=== PATIENT | male | born 1945 | race Caucasian/White ===

== ENCOUNTER 2019-06-24 15:18 | Outpatient (CLI) | payer MEDICARE, SELFPAY ==
--- NOTE | ~2019-06-24 | US_ITS ---
EXAMINATION: US retroperitoneal comp DATE: 06/24/2019 16:13 INDICATION: Renal mass seen on CT TECHNIQUE: Multiple ultrasound grayscale images of the kidneys were obtained. COMPARISON: CT dated 06/13/2019 FINDINGS: The right kidney measures 13.1 x 6.8 x 7.1 cm. The left kidney measures 13.4 x 5.8 x 5.2 cm. The kidn eys demonstrate normal echogenicity. Bilateral anechoic renal cysts the largest measuring 8.2 cm at t he posterior mid right kidney. There is a smaller 3.9 cm anechoic cyst at the inferior left kidney wh ich corresponds to the intermediate attenuation lesion on prior CT consistent with a proteinaceous/he morrhagic cyst. There is an additional smaller 1.6 cm anechoic left renal cyst. There is no hydroneph rosis in either kidney. No stones identified. The bladder is normal. IMPRESSION: 1. Bilateral anechoic renal cysts which includes a 3.9 cm likely proteinaceous/hemorrhagic cyst at t he lower pole of the left kidney corresponding to the lesion of concern on prior CT. Reviewed, dictated and finalized at location A. 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 Bilateral anechoic renal cysts which includes a 3.9 cm likely proteinaceous /hemorrhagic cyst at the lower pole of the left kidney corresponding to the les ion of concern on prior CT.
== END 2019-06-24 15:19 | disposition home or self-care (01) ==
LOC: ANHIMG 15:20
PROVIDERS: Visit Provider Internal Medicine
DX: N28.1 Cyst of kidney, acquired (principal)
CPT/HCPCS: 76770

== ENCOUNTER 2020-07-02 10:17 | Outpatient (CLI) | payer MEDICARE, SELFPAY ==
--- NOTE | 2020-07-02 12:00 | NEURO_ITS ---
Impression: # Complains of nocturnal paresthesia of hands. # Bilateral Carpal Tunnel Syndrome, right more than left. # Left ulnar neuropathy across the elbow. # Abnormal needle/EMG exam Nerve Conduction Studies Anti Sensory Summary Table Stim Site NR Peak (ms) P-T Amp (?V) Site1 Site2 Delta-P (ms) Dist (cm) Shia (m/s) Left Median Anti Sensory (2-3nd Digit) Wrist 5.4 19.1 Wrist 2-3nd Digit 5.4 14.0 26 Wrist 6.3 14.6 Wrist 2-3nd Digit 5.4 14.0 26 Right Median Anti Sensory (2-3nd Digit) Wrist 6.1 19.7 Wrist 2-3nd Digit 6.1 14.0 23 Wrist 6.7 18.7 Wrist 2-3nd Digit 6.1 14.0 23 Left Radial Anti Sensory (Base 1st Digit) Wrist 2.5 9.8 Wrist Base 1st Digit 2.5 0.0 Right Radial Anti Sensory (Base 1st Digit) Wrist 2.2 9.9 Wrist Base 1st Digit 2.2 0.0 Left Ulnar Anti Sensory (5th Digit) Wrist 2.9 21.3 Wrist 5th Digit 2.9 14.0 48 Right Ulnar Anti Sensory (5th Digit) Wrist 3.3 32.8 Wrist 5th Digit 3.3 14.0 42 Motor Summary Table Stim Site NR Onset (ms) O-P Amp (mV) Site1 Site2 Delta-0 (ms) Dist (cm) Shai (m/s) Left Median Motor (Abd Poll Brev) Wrist 5.5 0.8 Elbow Wrist 5.5 32.0 58 Elbow 11.0 1.7 Right Median Motor (Abd Poll Brev) Wrist 6.3 0.8 Elbow Wrist 5.6 30.0 54 Elbow 11.9 1.5 Left Ulnar Motor (Abd Dig Minimi) Wrist 3.4 3.3 A Elbow Wrist 6.5 31.0 48 A Elbow 9.9 2.4 B Elbow Wrist 5.0 26.0 52 B Elbow 8.4 2.7 Right Ulnar Motor (Abd Dig Minimi) Wrist 3.4 3.6 A Elbow Wrist 5.9 33.0 56 A Elbow 9.3 2.5 F Wave Studies NR F-Lat (ms) L-R F-Lat (ms) Left Median (Mrkrs) (Abd Poll Brev) 31.11 1.17 Right Median (Mrkrs) (Abd Poll Brev) 32.28 1.17 Left Ulnar (Mrkrs) (Abd Dig Min) 31.29 1.05 Right Ulnar (Mrkrs) (Abd Dig Min) 32.34 1.05 EMG Side Muscle Nerve Root Ins Act Fibs Amp Dur Recrt Comment Right 1stDorInt Ulnar C8-T1 Nml Nml Nml Nml Nml Right Ext Indicis Radial (Post Int) C7-8 Nml Nml Nml Nml Nml Right Ext Digitorum Radial (Post Int) C7-8 Nml Nml Nml Nml Nml Right BrachioRad Radial C5-6 Nml Nml Nml Nml Nml Right PronatorTeres Median C6-7 Nml Nml Nml Nml Nml Right Abd Poll Brev Median C8-T1 Nml Nml Nml >12ms Reduced Left 1stDorInt Ulnar C8-T1 Nml Nml Nml >12ms Reduced Left Ext Indicis Radial (Post Int) C7-8 Nml Nml Nml Nml Nml Left Ext Digitorum Radial (Post Int) C7-8 Nml Nml Nml Nml Nml Left BrachioRad Radial C5-6 Nml Nml Nml Nml Nml Left PronatorTeres Median C6-7 Nml Nml Nml Nml Nml Left Abd Poll Brev Median C8-T1 Nml Nml Nml >12ms Reduced MTDD
== END 2020-07-02 10:18 | disposition home or self-care (01) ==
PROVIDERS: PCP Internal Medicine; Visit Provider Orthopaedic Surgery
DX: G56.03 Carpal tunnel syndrome, bilateral upper limbs (principal)
CPT/HCPCS: 95886; 95911

== ENCOUNTER 2020-07-16 09:27 | Outpatient (CLI) | payer MEDICARE, SELFPAY ==
--- NOTE | 2020-07-16 09:30 | ECG_ITS ---
Measurements Intervals [place] Rate: 72 P: 223 HI: 206 QRS: 57 QRSD: 173 T: 43 QT: 436 QTc: 480 Interpretive Statements ELECTRONIC ATRIAL PACEMAKER ELECTRONIC VENTRICULAR PACEMAKER VENTRICULAR PREMATURE COMPLEXES BASELINE ARTIFACT- I, II, AVR, AVL, AVF NO FURTHER INTERPRETATION IS POSSIBLE BORDERLINE ECG Electronically Signed On 07-16-2020 10:22:09 INTEGRATION CONSULTANT by Rodrigue Bess D.O.
[2020-07-16 10:19] LABS: Anion Gap 7 mmol/L (8-16); Blood Urea Nitrogen 11 mg/dL (9-20); Calcium 9.5 mg/dL (8.4-10.2); Carbon Dioxide 31 mmol/L (22-30); Chloride 99 mmol/L (98-107); Estimated Glomerular Filt Rate > 60; Glucose 104 mg/dL (75-110); Potassium 3.9 mmol/L (3.4-5.0); Sodium 137 mmol/L (137-145)
== END 2020-07-16 09:28 | disposition home or self-care (01) ==
LOC: ANHSURGERY 09:28
PROVIDERS: Anesthesiology; PCP Internal Medicine; Visit Provider Orthopaedic Surgery
DX: Z01.818 Encounter for other preprocedural examination (principal); I10 Essential (primary) hypertension
CPT/HCPCS: 36415; 80048; 93005

== ENCOUNTER → 2020-07-20 02:14 | Outpatient (CLI) | payer MEDICARE, SELFPAY ==
[2020-07-20 18:21] LABS: SARS-CoV-2 RNA PCR Negative
== END ==
PROVIDERS: PCP Internal Medicine; Visit Provider Orthopaedic Surgery
DX: Z01.812 Encounter for preprocedural laboratory examination (principal); Z20.822 Contact with and (suspected) exposure to COVID-19
CPT/HCPCS: C9803; U0003; U0005

== ENCOUNTER 2020-07-23 00:45 | Day surgery (SDC) | payer MEDICARE, SELFPAY ==
[2020-07-15 12:47] VITALS: BMI 33.9
--- NOTE | 2020-07-22 12:00 | WPDANESEPPF ---
Anes - Initial Pre Proc Eval Procedure: Operation Date: 07/23/20 10:30 Proposed Procedures p Right Carpal Tunnel Release And Right Cubital Tunnel Decompression, - Artie Murrell MD s Right Third Trigger Finger Release - Artie Murrell MD Date/Time: 07/22/20 12:00 Surgeon: Artie Murrell MD Pre Op Diagnosis: Rt Carpal And Cubital Syndrome, Rt Trigger Finger Patient Data Age: 74 Gender: M Height: 1.83 m Weight: 113.4 kg Allergies Allergy/AdvReac Type Severity Reaction Status Date / Time iodine Allergy Unknown LIGHT Verified 07/23/20 09:18 HEADED Sulfa (Sulfonamide Allergy Unknown Hives Verified 07/23/20 09:18 Antibiotics) Home Medications Medication Instructions Recorded Confirmed Type esomeprazole magnesium 40 mg 40 mg PO QPM 12/08/19 07/23/20 History capsule,delayed release lisinopril 20 mg tablet 20 mg PO QPM 12/08/19 07/23/20 History metoprolol succinate 50 mg 50 mg PO QAM 12/08/19 07/23/20 History tablet,extended release 24 hr hydrochlorothiazide 25 mg tablet 12.5 mg PO DAILY tablet 06/22/20 07/23/20 History aspirin [Adult Low Dose Aspirin] 81 mg PO QPM 07/15/20 07/23/20 History mecobalamin (vitamin B12) 1,000 mcg PO DAILY 07/15/20 07/23/20 History multivitamin,ap-[id number] 1 tablet PO DAILY 07/15/20 07/23/20 History [Complete Multivitamin] Patient hx anesthesia problems: none Family hx anesthesia problems: none [facility] Past Medical History Medical History Chronic GERD Coronary artery disease Elective replacement indicated for cardiac pacemaker battery at end of lifespan (~10/2014) Glaucoma Hypertension Obesity ARIS on CPAP Pacemaker Surgical History Surgical History Hx of repair of right rotator cuff (~07/18/14) Status post revision of total replacement of left knee (~03/21/17) Status post revision of total replacement of right knee (~11/29/16) Status post total knee replacement, right (~05/01/00) Status post total left knee replacement (~01/17/00) Social History Social History Smokeless tobacco user: chewing tobacco Additional smoking assessment comments: CHEWING TOBACCO DAILY X 40 YEARS Alcohol intake: current Living arrangements: with family Spiritual care concerns: No Anes - Eval Final PreProcedure Day of Procedure 07/22/20 12:00 Patient weight: obese Heart: regular rate and rhythm Lungs: clear to auscultation and normal air movement Airway: Mallampati scale class II Neurological: alert and oriented Last oral intake: >/= 8 hours ASA classification: III Emergent: no Anesthetic plan: proceed Anesthesia type and monitoring: general LMA Informed Consent: The patient's anesthetic plan and its attendant risks and benefits were discussed with the patient/family/POA. Questions were solicited and answers provided to the satisfaction of the patient/family/POA.
[2020-07-23] VITALS (8 sets, daily range): BP systolic 104–133; BP diastolic 60–73; PULSE 52–64; RESP 12–20; TEMP 36.3–36.4; O2SAT 95–100; BMI 33.0
[2020-07-23] MEDS: KETOROLAC 15 MG/ML VIAL (*BKC) IV PUSH (09:06)
[2020-07-23] MEDS: ACETAMINOPHEN 500 MG TABLET 1000 MG PO (09:06)
[2020-07-23] MEDS: LACTATED RINGERS 1,000 ML 30 ML IV CONT ×2 (09:06→11:12)
--- NOTE | 2020-07-23 09:24 | PM.HPGS ---
History of Present Illness History of Present Illness Consent: Risks, benefits, and alternatives have been discussed and questions answered. Patient agrees to proceed with procedure. Chief complaint: Rt Carpal And Cubital Syndrome, Rt Trigger Finger Narrative: Isidoro Katz is a 74 year old male Who complains of hand pain, numbness and tingling. Pain located at the elbow and radiates all the way down into the fingers. He complains of numbness and tingling in all of his fingers. Predominantly in the 4th and 5th digits. He states at night he sleeps with his CPAP machine and he has to use his hand to hold onto its so his elbow is bent. He wakes up with sharp stabbing pains that he has to get up and shake out. 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 He notes pain is worse when playing cards. Clinical symptoms consistent with both carpal and cubital tunnel bilaterally. Also recurrent triggering of the right 3rd finger. Review of Systems Constitutional: Constitutional: Denies fever(s) ENT: Denies sore throat Cardiovascular: Cardiovascular: Denies dyspnea Respiratory: Respiratory: Denies cough and Denies dyspnea Musculoskeletal: Musculoskeletal: Reports as per [facility] Past Medical History Medical History Chronic GERD Coronary artery disease Elective replacement indicated for cardiac pacemaker battery at end of lifespan (~10/2014) Glaucoma Hypertension Obesity ARIS on CPAP Pacemaker Surgical History Surgical History Hx of repair of right rotator cuff (~07/18/14) Status post revision of total replacement of left knee (~03/21/17) Status post revision of total replacement of right knee (~11/29/16) Status post total knee replacement, right (~05/01/00) Status post total left knee replacement (~01/17/00) Social History Social History Smokeless tobacco user: chewing tobacco Additional smoking assessment comments: CHEWING TOBACCO DAILY X 40 YEARS Alcohol intake: current Living arrangements: with family Spiritual care concerns: No Meds Home Medications and Allergies Home Medications Medication Instructions Recorded Confirmed Type esomeprazole magnesium 40 mg 40 mg PO QPM 12/08/19 07/23/20 History capsule,delayed release lisinopril 20 mg tablet 20 mg PO QPM 12/08/19 07/23/20 History metoprolol succinate 50 mg 50 mg PO QAM 12/08/19 07/23/20 History tablet,extended release 24 hr hydrochlorothiazide 25 mg tablet 12.5 mg PO DAILY tablet 06/22/20 07/23/20 History aspirin [Adult Low Dose Aspirin] 81 mg PO QPM 07/15/20 07/23/20 History mecobalamin (vitamin B12) 1,000 mcg PO DAILY 07/15/20 07/23/20 History multivitamin,wm-[id number] 1 tablet PO DAILY 07/15/20 07/23/20 History [Complete Multivitamin] Allergies Allergy/AdvReac Type Severity Reaction Status Date / Time iodine Allergy Unknown LIGHT Verified 07/23/20 09:18 HEADED Sulfa (Sulfonamide Allergy Unknown Hives Verified 07/23/20 09:18 Antibiotics) Exam Narrative: Exam Narrative: Full range of motion at right wrist and elbow with no tenderness. Tinel's at elbow and wrist negative. Phalen's test positive. No instability of ulnar nerve at elbow. Numbness at all digits. Negative Simon's test. Negative CMC grind test. Normal thenar eminence. Normal capillary refill. Distal pulses palpable. Const: General: no acute distress and alert Nutritional Appearance: well nourished Orientation/consciousness: patient oriented x3 Limitations: no limitations Skin: General skin exam: no rashes or lesions noted Trauma: no lacerations or abrasions Neuro: General: patient oriented x3 Speech: normal speech Gait exam (Neuro): Normal gait present Extrem: General: normal to inspection, full ROM, capillary refill normal, no clubb
--- NOTE | 2020-07-23 09:28 | WPDHPUPDATE1 ---
History and Physical Update Update Date/Time: 07/23/20 09:28 History and Physical has been reviewed, including an updated exam of the patient. There are NO changes in the patient's condition. Risks, benefits, and alternatives have been discussed and questions answered. Patient agrees to proceed with procedure.
[2020-07-23] MEDS: ceFAZolin 2 GM/D5W 50 ML 2 GM/50 ML BAG IVPB (09:54)
[2020-07-23] MEDS: BUPIVACAINE/EPINEPHRINE 0.5% 30 ML VIAL INFILTRATE (10:45)
--- NOTE | 2020-07-23 11:41 | P.OP_ITS ---
Procedure Note - Detailed Date of procedure: 07/23/20 Pre-op diagnosis: Rt Carpal And Cubital Syndrome, Rt Trigger Finger Post-op diagnosis: other Procedure performed: 1. Carpal Tunnel Release 2. Ulnar nerve decompression at the elbow. 3. Third finger trigger finger release. Anesthesia: GLMA Surgeon: Artie Murrell MD Software Tools Developer: Coral Chavis PA-C Estimated blood loss (mL): 1 Complications: None Condition: stable Findings: Physician loan officer assistant, Coral Chavis PA-C, required for surgery; including patient positioning, draping, tissue retraction, maintaining instrument position, wound closure, and dressing placement. Operative details. After general anesthesia was administered, the hand was prepped and draped in the usual sterile fashion. The proposed incision was marked using typical anatomic landmarks. 4ML 0.5% Marcaine with epinephrine was injected along the incision lines. The limb was exsanguinated and the tourniquet inflated to 250 millimeters of mercury. A longitudinal incision was taken sharply. Dissection was brought down to the transverse carpal ligament. Under direct vision the ligament was incised sharply. The proximal release was carried out with dissection scissors. The contents of the carpal canal were protected with a [place] elevator. The transverse carpal ligament was confirmed to be widely patent. The long trigger finger flexor tendon sheath was exposed with a longitudinal incision. Careful blunt dissection down to the A1 seamus. Dissection distally through the seamus sheath. The tendon moved freely. Closed with 3-0 Prolene mattress suture. Attention was turned to the elbow. A longitudinal incision was created posterior to the medial epicondyle. Careful dissection was brought down to the ulnar nerve. It was identified proximally and dissected to the cubital tunnel retinaculum. Careful dissection released the cubital tunnel retinaculum. The dissection was carried out to the flexor carpi the palmaris. The 1st motor branch was carefully identified and protected. Attention was turned proximally in the nerve was released proximal to the intermuscular septum. The arm was flexed and the nerve was assessed. The nerve was stable. The subcutaneous tissues were closed with 2-0 Vicryl suture. The skin was closed with interrupted 3-0 Monocryl suture followed by running 4-0 Monocryl suture and Steri-Strips. Sterile dressing was applied with a soft splint at the wrist and a hard splint at the elbow. The patient was extubated and brought to the recovery room in stable condition.
== END 2020-07-23 13:13 | disposition home or self-care (01) ==
PROVIDERS: PCP Internal Medicine; Visit Provider Orthopaedic Surgery
PROC: (CPT 64721; principal; 2020-07-23 10:30)
PROC: (CPT 26055; 2020-07-23 10:30)
DX: G56.01 Carpal tunnel syndrome, right upper limb (principal); G56.21 Lesion of ulnar nerve, right upper limb; M65.331 Trigger finger, right middle finger; I10 Essential (primary) hypertension; I25.10 Atherosclerotic heart disease of native coronary artery without angina pectoris; G47.33 Obstructive sleep apnea (adult) (pediatric); K21.9 Gastro-esophageal reflux disease without esophagitis; H40.9 Unspecified glaucoma; Z95.0 Presence of cardiac pacemaker; E66.9 Obesity, unspecified; Z68.33 Body mass index [BMI] 33.0-33.9, adult; F17.220 Nicotine dependence, chewing tobacco, uncomplicated
CPT/HCPCS: 64721; 26055; 64718; 36415; 80048; 93005; A4565; A9270; C9803; J0690; J1100; J1885; J2370; J2405; J2704; J3010; J7120; U0003; U0005

== ENCOUNTER 2023-11-02 10:02 | Outpatient (CLI) | payer MEDICARE, SELFPAY ==
--- NOTE | ~2023-11-02 | XR_ITS ---
AP view of the pelvis and AP and lateral views of the lateral hips Clinical history: Pain Findings: No acute fracture or dislocation is seen. Osseous alignment is anatomic. Bilateral hip and SI joint spaces are preserved. Soft tissues are unremarkable. Impression: No significant abnormality is seen. Reviewed, dictated and finalized at location . Impression: No significant abnormality is seen.
--- NOTE | ~2023-11-02 | XR_ITS ---
Right Knee Technique: AP, lateral, and sunrise views were obtained. Clinical History: Arthroplasty Findings: No fracture or dislocation is seen. Osseous alignment is anatomic. Right knee arthroplasty in place. Soft tissues are unremarkable. No joint effusion is seen. Impression: No acute abnormality. Right knee arthroplasty in place. Reviewed, dictated and finalized at location . Impression: No acute abnormality. Right knee arthroplasty in place.
--- NOTE | ~2023-11-02 | XR_ITS ---
Left Knee Technique: AP, lateral, and sunrise views were obtained. Clinical History: Arthroplasty Findings: No fracture or dislocation is seen. Osseous alignment is anatomic. Left knee arthroplasty i n place. Soft tissues are unremarkable. No joint effusion is seen. Impression: No acute abnormality. Left knee arthroplasty. Reviewed, dictated and finalized at location . Impression: No acute abnormality. Left knee arthroplasty.
== END 2023-11-02 10:03 | disposition home or self-care (01) ==
LOC: ANHIMG 10:03
PROVIDERS: PCP Internal Medicine; Visit Provider Orthopaedic Surgery
DX: M25.551 Pain in right hip (principal); M25.552 Pain in left hip; Z96.653 Presence of artificial knee joint, bilateral
CPT/HCPCS: 73521; 73562